=== PATIENT | female | born 1990 | race Caucasian/White ===

== ENCOUNTER 2016-08-04 12:31 | Emergency (ER) | payer OTHER | END 2016-08-04 13:20 | disposition home or self-care (01) | LOC: ER1 12:31 | DX: L03.311 Cellulitis of abdominal wall (principal); Z90.49 Acquired absence of other specified parts of digestive tract | CPT/HCPCS: 87070; 87205; 99283 ==

== ENCOUNTER 2016-08-07 07:22 | Emergency (ER) | payer OTHER ==
[2016-08-07 08:13] LABS: HEMOGLOBIN 14.7 gm/dl (12.3-15.3); RED BLOOD COUNT 4.76 M/UL (4.00-5.10); WHITE BLOOD COUNT 8.4 K/UL (4.5-11.0)
[2016-08-07 08:33] LABS: BUN/CREATININE RATIO 16 (0-10)
== END 2016-08-07 13:05 | disposition home or self-care (01) ==
LOC: ER1 07:22
PROVIDERS: Emergency Medicine
DX: R10.31 Right lower quadrant pain (principal); R31.9 Hematuria, unspecified; R11.2 Nausea with vomiting, unspecified; F17.200 Nicotine dependence, unspecified, uncomplicated; Z90.49 Acquired absence of other specified parts of digestive tract
CPT/HCPCS: 36415; 80053; 81001; 82150; 83690; 84703; 85025; 96361; 96374; 96375; 96376; 99284; J2270; J2405; J7030

== ENCOUNTER 2016-08-11 07:28 | Emergency (ER) | payer OTHER ==
[2016-08-11 08:31] LABS: HEMOGLOBIN 14.6 gm/dl (12.3-15.3); RED BLOOD COUNT 4.72 M/UL (4.00-5.10)
[2016-08-11 08:52] LABS: BUN/CREATININE RATIO 15 (0-10)
== END 2016-08-11 11:38 | disposition home or self-care (01) ==
LOC: ER1 07:28
PROVIDERS: Emergency Medicine
DX: R07.89 Other chest pain (principal); R42 Dizziness and giddiness; R06.02 Shortness of breath; Z90.49 Acquired absence of other specified parts of digestive tract
CPT/HCPCS: 36415; 70450; 71010; 80053; 82550; 82553; 83874; 84484; 84703; 85025; 85379; 93005; 99285